=== PATIENT | female | born 1965 | race African-American/Black ===

== ENCOUNTER 2023-12-01 09:59 | Outpatient (CLI) | payer MEDICARE, MEDICAID | END 2023-12-01 10:00 | disposition home or self-care (01) | LOC: CSHWCC 09:59 | PROVIDERS: ATTEND Nurse Practitioner Family | DX: I87.312 Chronic venous hypertension (idiopathic) with ulcer of left lower extremity (principal); L97.222 Non-pressure chronic ulcer of left calf with fat layer exposed; I50.32 Chronic diastolic (congestive) heart failure | CPT/HCPCS: 11042; G0463; 99214 ==